=== PATIENT | male | born 1960 | race Caucasian/White ===

== ENCOUNTER 2019-07-05 10:30 | Inpatient (IN) | payer OTHER ==
[~2019-07-05] VITALS: Ht 182.9 cm; Wt 117.9 kg
[2019-07-05] MEDS ORDERED: NORVASC 2.5 MG2.5 M1 PO (13:26)
[2019-07-05] MEDS ORDERED: LIPITOR40 MG PO (13:27)
[2019-07-05] MEDS ORDERED: COLACE 100 MG100 MG PO (13:28)
[2019-07-05] MEDS ORDERED: IBUPROFEN 600600 M1 PO (13:29)
[2019-07-05] MEDS ORDERED: LEVO-T100 MCG PO (13:31)
[2019-07-05] MEDS ORDERED: SINGULAIR 10 MG10 M1 PO (13:33)
[2019-07-05] MEDS ORDERED: DALIRESP250 MCG PO (13:34)
[2019-07-05] MEDS ORDERED: VRAYLAR1.5 MG PO (13:35)
[2019-07-05] MEDS ORDERED: COMBIVENT INH (13:37)
[2019-07-05] MEDS ORDERED: CLEOCIN HCL300 MG PO (14:45)
[2019-07-05] MEDS ORDERED: CLONAZEPAM 0.50.5 M1 PO ×2 (14:48→14:49)
[2019-07-05] MEDS ORDERED: HYDROCHLOROTHIA25 M2 PO (14:50)
[2019-07-05] MEDS ORDERED: ALBUTEROL2.5 MG/0.5 INH (14:53)
[2019-07-05] MEDS ORDERED: NABUMETONE 500500 M1 PO (15:05)
[2019-07-05] MEDS ORDERED: PERCOCET 7.5-31 EAC1 PO (15:07)
[2019-07-05] MEDS ORDERED: CHANTIX1 MG PO (15:08)
[2019-07-05] MEDS ORDERED: BACLOFEN 10MG T10 MG PO (15:56)
--- NOTE | 2019-07-05 17:03 | NUR ---
1630 ADMITTED TO ROOM 505 PER W/C FROM [facility]. PATIENT IS ALERT AND ORIENTED X4. PATIENT ETIENNE'S, CHAINSTITCH TUNNEL ELASTIC OPERATOR ARE EQUAL. PATIENT HAS 4X4 DRESSING TO BACK OF HIS NECK. HIS INCISION IS COVERED BY STERI-STRIPS. PATIENT LUNGS ARE CLEAR AND DEMINISHED. ABD IS SOFT WITH BSX4. PATIENT HAD BM TODAY. PATIENT IS UP WITH ASSIST OF 1 STAFF WITH GAIT BELT AND WALKER. FALL AND SAFETY PROTOCOLS IN PLACE. DENIES PAIN AT THIS TIME. PT/OT/ST EVALS TO BE DONE IN THE A.M. REHAB N.P HERE TO SEE PATIENT. HOSPITALIST NOTIFIED OF PATIENTS ARRIVAL. WILL CONTINUE TO MONITER.
[2019-07-05 18:39] VITALS: BP 131/81
[2019-07-05 20:20] VITALS: BP 133/77
--- NOTE | 2019-07-05 22:10 | NUR ---
PT ASSESSMENT COMPLETED AND VSS. MEDS GIVEN ORDERED AND WELL TOLERATED. PRN PAIN MEDICATION HELPFUL. SLEEPING. NECK PRECAUTIONS FOLLOWED. FALL PRECAUTIONS IN PLACE. WILL CONTINUE TO MONITOR FREQUENTLY.
[2019-07-06 05:42] LABS: HEMATOCRIT 44.7 % (42.0-52.0); HEMOGLOBIN 14.6 gm/dL (14.0-18.0); MCH 30.6 pg (26.0-34.0); MCHC 32.6 g/dL (28.0-37.0); MCV 93.8 fL (80.0-100.0); RBC 4.76 mil/uL (4.50-6.00); RDW 13.4 % (10.5-14.5); WBC 10.1 thou/uL (4.0-11.0)
[2019-07-06 05:53] LABS: ALBUMIN 3.2 g/dL (3.4-5.0); TOTAL BILIRUBIN 0.6 mg/dL (<0.1-1.0); TOTAL PROTEIN 6.3 g/dL (6.4-8.2)
[2019-07-06 07:15] VITALS: BP 138/80
--- NOTE | 2019-07-06 12:29 | NUR ---
Nutrition: Assessed due to consult received related to need for supplements and wound present. Surgical wound present from recent cervical diskectomy with fusion. PMH: COPD, HTN, HLD. Reports good appetite eating nearly all of meals. Pt did voice a weight gain of over 60# due to need for steroids and of father. Admits to depression, inactivity and excessive sleeping. RD offered basic tips to promote weight loss. Requesting ensure enlive TID which RD explained would be excessive calories for pt. Will offer Ensure max once daily to provide additional protein without the excess calories. RD provided dietary handouts on weight loss per pt request. Current issues related to constipation/pain meds. On bowel regimen. Place pt as low nutrition risk.
--- NOTE | 2019-07-06 14:10 | NUR ---
Patient participated in community reintegration on 07/06/19 with PHYSICAL THERAPY. Refer to documentation by PHYSICAL THERAPY.
--- NOTE | 2019-07-06 16:24 | NUR ---
ASSUMED CARES AT 0700. PT AWAKE, ALERT AND ORIENTED*4. C/O NECK PAIN, PAIN MEDICATION ADMINISTERED NEEDED. VITALS REMAIN STABLE. NECK SITE BACK CLEANED AND DRESSING CHANGED. PT SUPPOSED TO WEAR NECK BRACE WHEN UP ACCORDING TO THE ORDER. SKIN REMAINS DRY AND INTACT. PT UP WITH 1 SBA, GB AND WALKER AND TOLERATED WELL. Q1H VISUAL CHECKS.CALL LIGHT WITHIN REACH. FALL PRECAUTIONS IN PLACE
[2019-07-06 19:15] VITALS: BP 125/54
--- NOTE | 2019-07-07 01:29 | NUR ---
PT ALERT AND ORIENTED X 4. AMB TO BR WITH WALKER AND ASSIST X 1. UNSTEADY GAIT. COLLAR ON WHEN UP. NECK DRESSING C/D/I. PT C/O PAIN IN HIS NECK. TRAMADOL GIVEN AT HS. PT SLEEPING UPON REASSESSMENT. PT UP TO URINATE FREQUENTLY. STATES IT IS BECAUSE HE TAKES A WATER PILL. PT STATES HE DOES NOT WANT TO TAKE THAT PILL ANYMORE. PT TAKES HCTZ ACCORDING TO MAR. PT DOES HAVE TRACE PEDAL EDEMA BILAT. WILL PASS ON TO DAY NURSE TO ADDRESS IN MORNING. BED ALARM ON FOR SAFETY. PT CHECKED ON HOURLY ROUNDS.
[2019-07-07 09:30] VITALS: BP 128/77
--- NOTE | 2019-07-07 12:54 | NUR ---
ASSUMED CARES AT 0700. PT AWAKE, ALERT AND ORIENTED*4. C/O NECK PAIN, TRAMADOL ADMINISTERED. VITALS REMAIN STABLE. SITE ON NECK BACK REMAINS DRY AND STERI STRIPS ARE INTACT. NECK BRACE REMAINS ON WHEN UP AND WITH ACTIVITY. PT CONTINUES TO HAVE BLE, EXTREMITIES ELEVATED. PT UP WITH 1 MIN ASSIST, GB AND WALKER AND TOLERATED WELL. Q1H VISUAL CHECKS. CALL LIGHT WITHIN REACH. FALL PRECAUTIONS IN PLACE
--- NOTE | 2019-07-07 15:24 | NUR ---
chart review. pt up in bed. per physical therapy pt had question about home health and dc. pt preferrs going by [facility] x 3, pleasant and able to make his needs know. " glad was able to come here, and nurses are great here"/tre. intro to dcp and team meeting. " live in residential apartment [facility]. have a cane. drive, and manage own medication. have grab bar in shower. dr is lesli richey [phone]. neighbors check on him if needed. 1 fall in past year outside on crack in sidewalk. i want to talk with someone about medicaid and disability. not with va yet. will be staying with my sister for 2-3 weeks after going home. she lives close by"/tre. will cont following as needed for dc needs.
[2019-07-07 19:53] VITALS: BP 125/84
[2019-07-08 01:13] LABS: URINE BILIRUBIN NEGATIVE (Negative); URINE BLOOD NEGATIVE (Negative); URINE CLARITY CLEAR; URINE COLOR YELLOW; URINE GLUCOSE-RANDOM* NEGATIVE (Negative); URINE KETONES NEGATIVE (Negative); URINE LEUKOCYTES NEGATIVE (Negative); URINE NITRITE NEGATIVE (Negative); URINE PROTEIN (DIPSTICK) NEGATIVE (Negative); URINE SPECIFIC GRAVITY 1.025 (1.005-1.035); URINE UROBILINOGEN 0.2 E.U./dl (0.2-1.0)
--- NOTE | 2019-07-08 01:30 | NUR ---
PT ALERT AND ORIENTED X 4. AMB TO BR WITH WALKER AND ASSIST X 1. DRESSING TO NECK C/D/I. PT C/O PAIN IN HIS NECK. TRAMADOL GIVEN AT HS AND PT SLEEPING UPON REASSESSMENT. UA SENT TO LAB WITH NEG RESULTS. BED ALARM ON FOR SAFETY. PT APPEARS TO BE SLEEPING ON HOURLY ROUNDS.
--- NOTE | 2019-07-08 11:57 | NUR ---
cm notified by that pt will be dc on 07/13/19 to [facility].
--- NOTE | 2019-07-08 14:07 | NUR ---
ASSUMED CARE AT 0700. PATIENT IS ALERT AND ORIENTED X4. PATIENT ETIENNE'S, TEXTILE EXAMINER ARE EQUAL. LUNGS ARE CLEAR. ABD IS SOFT WITH BSX4. PATIENT IS VOIDING PIETRO COLORED URINE. PATIENT IS UP TO THE BATHROOM WITH ASSIST OF 1 STAFF AND GAITBELT. PATIENT IS A LITTLE WOBBLY ON HIS FEET. UP TO THE DINING ROOM FOR MEALS. FALL AND SAFETY PROTOCOLS IN PLACE. DENIES ANY PAIN AT THIS TIME. CONTINUES TO PROGRESS TOWARDS D/C GOALS. WILL CONTINUE TO MONITER.
--- NOTE | 2019-07-08 14:09 | NUR ---
INCISION TO BACK OF HIS NECK COVERED WITH STERI STRIPS AND DRESSING THAT IS DRY AND INTACT. WILL CONTINUE TO MONITER.
[2019-07-08 18:55] VITALS: BP 113/65
--- NOTE | 2019-07-09 03:37 | NUR ---
assumed care at approx 1900 evening 07/08. pt alert and oriented x4 sitting up in recliner in apt at change of shift.pt up to bathroom with 1 assist. pt took hs meds with soda tolerating well. pt given pain meds prn and presently in bed sleeping soundly. bed alarm on and call light in reach. will continue to monitor.
--- NOTE | 2019-07-09 08:00 | NUR ---
ASSUMED CARE AT 0700. PATIENT IS ALERT AND ORIENTED X4. ARIAN HAS DRESSING TO HIS NECK WITH PAPER TAPE. LUNGS ARE CLEAR. ABD IS SOFT WITH BSX4. UP WITH P.T. WITH WALKER AND GAIT BELT TO THE BATHROOM TO VOID PIETRO COLORED URINE. OUT TO THE DINING ROOM TO MEALS. FALL AND SAFETY PROTOCOLS IN PLACE. C/O PAIN IN HIS NECK. MEDICATED WITH PRN PAIN MED. CONTINUES TO PROGRESS TOWARDS D/C GOALS. WILL CONTINUE TO MONITER.
--- NOTE | 2019-07-09 09:22 | NUR ---
CONSULT [id number] WAS COMPLETED AT APPROXIMATELY 1500 HOURS ON JULY 08, 2019 BY [facility] [employer] [facility].
[2019-07-09 10:28] VITALS: BP 114/62
[2019-07-09 19:15] VITALS: BP 111/56
--- NOTE | 2019-07-10 01:51 | NUR ---
assumed care at approx 1900 evening 07/09. pt sitting up on couch at change of shift resting. pt alert and oriented x4, somewhat forgetful yet pleasant and cooperative. pt reminded to use call light for assistance when needing to go to bathroom. pt assured he would call. pt took hs meds with water tolerating well. pt requested to sleep on couch as he stated it was more comfortable. pt appears to be sleeping soundly. call light in reach. will continue to monitor.
[2019-07-10 07:56] VITALS: BP 117/75
--- NOTE | 2019-07-10 13:08 | NUR ---
ASSUMED CARE AT 0700. VSS ON RA. B/P 117/75 HELD B/P MEDS PER PARAMETER. PATIENT IS ALERT AND ORIENTED X4. ABLE TO VOICE HIS NEEDS. STERI STRIPS CHANGED. ON NECK DRESSING, HEALING WELL, NEW STERI STRIPS APPLIED. LUNGS ARE CLEAR. ABD IS SOFT WITH BSX4. UP WITH P.T. WITH WALKER AND GAIT BELT TO THE BATHROOM TO VOID PIETRO COLORED URINE. NOTED DRAGGING RIGHT LEG WHEN WALKING. ENCOURAGED PT UP TO TO THE DINING ROOM TO MEALS. FALL AND SAFETY PROTOCOLS IN PLACE. C/O PAIN IN HIS NECK EARLIER. GAVE PRN TYLENOL WITH MORNING MEDS. PAIN IS DOWN TO 2/10, HAS ANXIETY 8/10, GAVE ANTIANXIETY GIVEN. PT REQUESTS TO BE ON NICOTINE PATCH PT TOLD DR. HERNÁNDEZ WHO CAME TO SEE PT THAT HE SMOKED [address] HERNÁNDEZ WILL ADD NICOTINE PATCH LATER. CONTINUES TO PROGRESS TOWARDS D/C GOALS. WILL CONTINUE TO MONITOR.
[2019-07-10 18:52] VITALS: BP 119/75
--- NOTE | 2019-07-10 23:30 | NUR ---
PT ASSESSMENT DONE AND VSS. MEDS GIVEN AND WELL TOLERATED. FALL PRECAUTIONS IN PLACE. SLEEPING WELL. HOURLY ROUNDING. CALL LIGHT IN REACH. WILL CONTINUE TO MONITOR.
[2019-07-11 06:35] LABS: ABSOLUTE NEUTROPHILS 6.2 thou/uL (1.4-8.2); BASOPHILS 1.1 % (0.0-2.0); EOSINOPHILS 4.8 % (0.0-3.0); HEMATOCRIT 45.5 % (42.0-52.0); HEMOGLOBIN 14.7 gm/dL (14.0-18.0); LYMPHOCYTES 19.1 % (24.0-44.0); MCH 30.2 pg (26.0-34.0); MCHC 32.2 g/dL (28.0-37.0); MCV 93.7 fL (80.0-100.0); MONOCYTES 7.6 % (1.0-8.0); PLATELET COUNT 324 thou/uL (150-400); POLYS 67.4 % (36.0-66.0); RBC 4.86 mil/uL (4.50-6.00); RDW 13.4 % (10.5-14.5); WBC 9.2 thou/uL (4.0-11.0)
[2019-07-11 07:09] LABS: MAGNESIUM 2.2 mg/dL (1.8-2.4); POTASSIUM 5.2 mmol/L (3.5-5.1)
[2019-07-11 07:14] LABS: CALCIUM 9.7 mg/dL (8.5-10.1)
[2019-07-11 08:23] VITALS: BP 121/83
--- NOTE | 2019-07-11 09:50 | NUR ---
ASSUMED CARE AT 0700. REPORTS DIDN'T SLEPT WELL LAST NIGHT. K5.2 KAYEXALATE ORDER BUT PT REFUSED. NOTIFIED MASOUD PT REFUSED TAKING KAYEXALATE. NOTED LEG 2+ PT HASN'T BE ON HTCZ D/T LOW B/P NOTIFIED MASOUD SHE CHANGED PARAMETER, THAT ABLE THIS FASTENER SEWING MACHINE OPERATOR TO GIVE HIM HTCZ THIS AM. PT ALSO REQUESTS TO BE ON MELATONIN TO HELP HIM SLEEP. MASOUD AWARES AND SAID SHE WILL LOOK INTO IT. PATIENT IS ALERT AND ORIENTED X4. ABLE TO VOICE HIS NEEDS. STERI STRIPS CHANGED. ON NECK DRESSING, HEALING WELL, NEW STERI STRIPS APPLIED. COLLAR IN PLACE. LUNGS ARE CLEAR. ABD IS SOFT WITH BSX4. UP WITH P.T. WITH WALKER AND GAIT BELT TO THE BATHROOM TO VOID PIETRO COLORED URINE. NOTED DRAGGING RIGHT LEG WHEN WALKING. ENCOURAGED PT UP TO TO THE DINING ROOM TO MEALS. FALL AND SAFETY PROTOCOLS IN PLACE. C/O PAIN IN HIS NECK RATE PAIN 6/10 GAVE PRN TYLENOL WITH MORNING MEDS. PAIN IS DOWN TO 2/10. START ON NICOTINE TODAY. CONTINUES TO PROGRESS TOWARDS D/C GOALS. WILL CONTINUE TO MONITOR.
[2019-07-11 19:43] VITALS: BP 116/75
--- NOTE | 2019-07-12 01:41 | NUR ---
PT ALERT AND ORIENTED X 4. AMB TO BR WITH WALKER AND ASSIST X 1. IMPULSIVE AT TIMES. PT INSISTS ON SLEEPING ON COUCH RATHER THAN IN BED. NECK INCISION C/D/I WITH STERI-STRIPS. PT WEARS NECK COLLAR WHEN UP. PT C/O NECK PAIN. TRAMADOL GIVEN AT START OF SHIFT. PT CHECKED ON HOURLY ROUNDS.
[2019-07-12 07:31] VITALS: BP 125/69
--- NOTE | 2019-07-12 10:00 | NUR ---
cm notified by [facility] that pt had some changes and getting MRI, will not dc to [facility] until thursday07/15/19, will cont following as needed for dc needs.
--- NOTE | 2019-07-12 16:07 | H ---
[facility] [place] [address] HISTORY AND PHYSICAL Name: CAMMY VELASQUEZ Room #: 501-A [facility] IN .R.#: [id number] Admission: 07/05/19 Attend Phys: Everton Jhaveri MD Discharge: Date of : 62 Report #: [id number] THIS REPORT FOR: //name// CC: Everton Jhaveri FAM unknown Luciano Fiore DATE OF SERVICE: 07/05/2019 HISTORY AND PHYSICAL AND POST-ADMISSION PHYSICIAN EVALUATION HISTORY OF PRESENT ILLNESS: The patient is a 58-year-old white male who was noted to have severe spinal stenosis of his cervical spine with cervical cord changes on imaging and some kyphosis. 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 He was admitted to [facility] and on 06/23/2019 underwent posterior cervical laminectomy with cervical fusion from C3 through C7 with instrumentation. Postoperatively, he has been managed while at [facility]. He is noted to have COPD. He has continued functional mobility and ADL deficits. He has been admitted now for acute in-hospital inpatient rehabilitation. PAST MEDICAL HISTORY: Includes COPD, heavy tobacco abuse. He is on Chantix history of hypertension, hyperlipidemia, peripheral neuropathy, and obstructive sleep apnea. MEDICATIONS: Please see the full medication listing. ALLERGIES: PENICILLIN. THERE IS ALSO A NOTE FOR IV DYE. SOCIAL HISTORY: The patient lives alone in an apartment. No stairs. His plan is to go to his sister's house, [place]. She works with her , is retired, and will be able to be there with him. He premorbidly utilized a quad cane. REVIEW OF SYSTEMS: No current complaints of chest pain, shortness of breath or abdominal discomfort. He notes some shaking that he gets after his breathing treatments, but he feels breathing treatments to help. PHYSICAL EXAMINATION: GENERAL: He is a pleasant 58-year-old white male in no obvious distress. VITAL SIGNS: Temperature 36.9, pulse 84, respirations 16, and blood pressure 138/80. NEUROLOGIC: He is alert, pleasant. Dentition fair with some missing teeth noted. His facies are symmetric. He follows commands without difficulty. CHEST: Some decreased breath sounds throughout. CARDIOVASCULAR: Regular rate and rhythm. [facility] [address] [place] [address] HISTORY AND PHYSICAL Name: CAMMY VELASQUEZ Room #: 501-A [facility] IN ..#: [id number] Admission: 07/05/19 Attend Phys: Everton Jhaveri MD Discharge: Date of : 62 Report #: [id number] ABDOMEN: Bowel sounds positive, nontender. GENITOURINARY AND RECTAL: Deferred. EXTREMITIES: He has functional range of motion of the upper extremities. Strength is probably a grade 4-/5. Negative Golden's. Lower extremities, no focal calf swelling, functional range of motion strength is a grade 4-/5. He does have rather stiff extensor tendencies of both lower extremities with gait when up walking with a walker. There was no clonus at the ankles. He does have decreased distal sensation consistent with his premorbid peripheral neuropathy. ASSESSMENT: A 58-year-old white male with the following problem list: 1. Cervical spinal stenosis with myelopathy. 2. Cervical spinal cord changes on imaging with spastic myelopathy noted. 3. Status post posterior cervical diskectomy with fusion C3 through C7 on 06/23/2019, at [facility] by Dr. Fiore. 4. Chronic obstructive pulmonary disease. 5. History of heavy tobacco abuse. 6. Hypertension. 7. Hyperlipidemia. 8. Premorbid peripheral neuropathy. 9. Obstructive sleep apnea. 10. Functional mobility and activities of daily living deficits. PLAN: The patient is admitted for acute in-hospital inpatient rehabilitation. From a postadmission physician evaluation perspective, there are no relevant changes since the preadmission screening. Please see the above review of prior and current medical and functional conditions and comorbidities. Please see the patient's previous and current functional status. As far as risk of complications, the patient has multiple medical comorbidities as noted above. Initial plan of care involves the interdisciplinary acute inpatient rehabilitation program. Measurable functional goals would be for the patient to become modified independent with transfers, mobility and ADLs, so that he can hopefully return and go to his sister's house. Prognosis is reasonably good with estimated length of stay probably at least 5-10 days and likely longer if warranted. Potential barriers would include his multiple medical comorbidities and decreased functional status. The patient meets diagnostic criteria for an acute in-hospital inpatient rehabilitation stay. He meets medical necessity criteria. We will have the environmental consultant physicians continue to follow. He does have the tolerance for therapies and has appropriate discharge goals back to the home setting. <ELECTRONICALLY SIGNED> By: Everton Jhaveri MD 07/12/19 1607 [id number] Everton Jhaveri MD /nt
--- NOTE | 2019-07-12 19:48 | NUR ---
A/O, clam and pleasant; afebrile; MRI done today, patient cried, worring about the result of MRI. Patient asked for higher dose of Nicotine patch, Dr. Jhaveri is aware.
[2019-07-12 20:15] VITALS: BP 116/74
--- NOTE | 2019-07-13 02:02 | NUR ---
PT ALERT AND ORIENTED X 4. AMB TO BR WITH WALKER AND ASSIST X 1. WEAK AND DRAGS RIGHT FOOT. NECK INCISION C/D/I WITH STERI-STRIPS. PT C/O NECK PAIN. TRAMADOL GIVEN AT HS AND PT SLEEPING UPON REASSESSMENT. ONE EPISODE OF URINARY INCONT TONIGHT. PT TRIED TO SLEEP IN BED BUT IS NOW ON COUCH IN ROOM. PT CHECKED ON HOURLY ROUNDS.
[2019-07-13 04:23] LABS: CALCIUM 9.4 mg/dL (8.5-10.1); CREATININE 1.2 mg/dL (0.7-1.3); POTASSIUM 4.7 mmol/L (3.5-5.1)
[2019-07-13 08:45] VITALS: BP 105/71
--- NOTE | 2019-07-13 10:31 | NUR ---
ASSUMED CARE AT 0700. PATIENT IS ALERT AND ORIENTED X4. ETIENNE'S, MEASUREMENT SPECIALIST ARE EQUAL. LUNGS ARE CLEAR. ABD IS SOFT WITH BSX4. PATIENT IS UP WITH ASSIST OF 1 STAFF AND GAIT BELT AND WALKER. UP TO THE DINING ROOM FOR MEALS. CONTINUES ON PO ABT WITHOUT ADVERSE AFFECTS. FALL AND SAFETY PROTOCOLS IN PLACE. DENIES ANY PAIN AT THIS TIME. CONTINUES TO PROGRESS TOWARDS D/C GOALS. GAIT IS STILL SLIGHTLY WOBBLY. WILL CONTINUE TO MONITER. REIVEWED WITH PATIENT : SHOES ON, CALL FOR HELP TO BATHROOM AND USE GAIT BELT.
--- NOTE | 2019-07-13 13:13 | NUR ---
Nutrition followup: Pt continues on rehab unit with cervical stenosis, kyphosis, myelopathy, S/P recent cervical diskectomy with fusion. No new weight since admit. Prior report of significant weight gain due to use of steroids. Weight loss tips/handouts have been provided. PO intake is good, 80-100% of meals and ensure max once daily. Prior loose stools are improving. On Vitamin D, B12 supplementation. Planned D/C 07/15. Low nutrition risk.
--- NOTE | 2019-07-13 14:15 | NUR ---
pt asked again how to set up va benifits, re-education that he would need to call [facility] and have them assit [phone]. talked about hh nurse for visit " [facility] is ok, not had hh in past"/tre
--- NOTE | 2019-07-13 14:33 | NUR ---
DISCHARGE PLANNING. ANTICIPATED DISCHARGE PLANNED FOR 07/15 PER UNIT CM. HOME HEALTH RECOMMENDED AT DISCHARGE. PATIENT REFERRAL FAXED TO [facility] PER REQUEST. PATIENT NEEDING NURSING SERVICES ONLY. PATIENT DISCHARGING TO [facility] [address] [place] [address]. CALL PLACED TO BUBBA [facility]SON INTAKE LIAISON TO NOTIFY OF PATIENT REFERRAL AND HH NEEDS. KATIE TO CHECK ON STAFFING AVAILABILITY FOR [facility] AND NOTIFY. FOLLOWING.
--- NOTE | 2019-07-13 15:33 | NUR ---
Patient participated in THERAPEUTIC GROUP ACTIVITY on 07/13/19 with SPEECH THERAPY. Refer to documentation by SPEECH THERAPIST.
--- NOTE | 2019-07-13 16:59 | NUR ---
Patient participated in therapeutic group on 07/13/[address] Refer to documentation by ST.
[2019-07-13 19:57] VITALS: BP 114/77
--- NOTE | 2019-07-14 03:20 | NUR ---
ASSUMED CARE AT APPROX 1900 EVENING 07/13. PT LYING ON COUCH SLEEPING AT CHANGE OF SHIFT. PT AWOKE FOR HS MEDS APPROX 2130 AND AWAKE UNTIL APPROX 0200. PT UP TO BATHROOM WITH WALKER AND 1 ASSIST DRAGGING RIGHT FOOT AT TIMES. PT APPROPRIATE AND COOPERATIVE. PT NOW BACK TO SLEEP ON COUCH. CALL LIGHT IN REACH. WILL CONTINUE TO MONITOR.
--- NOTE | 2019-07-14 07:55 | NUR ---
ASSUMED CARE AT 0700. PATIENT IS ALERT AND ORIENTED X4. PATIENT ETIENNE'S, CLOTH NEUTRALIZER ARE EQUAL. LUNGS ARE CLEAR. NECK STERI STRIPS DRY AND INTACT. ABD IS SOFT WITH BSX4. GAIT IS UNSTEADY. UP TO THE BATHROOM WITH ASSIST OF 1 STAFF AND GAIT BELT AND WALKER. OUT TO THE DINING ROOM FOR MEALS. FALL AND SAFETY PROTOCOLS IN PLACE. PATIENT HAS INTERMITTANT PAIN IN HIS NECK. PATIENT WAS MEDICATED WITH PRN PAIN MED BY NIGHT NURSE. CONTINUES TO PROGRESS TOWARDS D/C GOALS. WILL CONTINUE TO MONITER.
[2019-07-14 10:35] VITALS: BP 115/72
[2019-07-14 14:26] VITALS: BP 115/72
--- NOTE | 2019-07-14 14:31 | NUR ---
provided phone number to [facility] [employer] for pt to call to check on disability and va benefits. keyes # [phone], [place] [phone]. [facility] for dc home to sister house tomorrow. sister will be here around 4pm to pick him up.
[2019-07-14 19:17] VITALS: BP 129/76
--- NOTE | 2019-07-15 03:30 | NUR ---
CALLS FOR ASSIST UP TO BATHROOM. AWARE OF NEED TO WEAR SHOES AND USE WALKER BECAUSE OF HIS RIGHT FOOT DRAG. WEARS NECK COLLAR AND SLEEPS ON COUGH FOR COMFORT, CANNOT FIND POSITION OF COMFORT IN BED. APPRECIATES BACLOFEN. ANTICIPATING GOING HOME THIS AFTERNOON.
[2019-07-15 09:30] VITALS: BP 126/69
[2019-07-15] MEDS ORDERED: BACLOFEN 10MG T10 MG PO (10:18)
[2019-07-15] MEDS ORDERED: FLOMAX0.4 MG PO (10:18)
[2019-07-15] MEDS ORDERED: NICOTINE TRANSD14 M1 TRANSDERM (10:18)
[2019-07-15] MEDS ORDERED: ULTRAM 50MG TAB50 MG PO (10:18)
[2019-07-15] MEDS ORDERED: PROBIOTIC1 EAC1 PO (10:18)
[2019-07-15] MEDS ORDERED: VITAMIN B-12500 MCG PO (10:18)
[2019-07-15] MEDS ORDERED: VITAMIN D325 MCG PO (10:18)
--- NOTE | 2019-07-15 13:55 | PLAN ---
[facility] [place] [place] [address] REHAB UNIT PLAN OF CARE Name: CAMMY VELASQUEZ Room #: 501-A [facility] IN .R.#: [id number] Admission: 07/05/19 Attend Phys: Everton Jhaveri MD Discharge: Date of : 62 Report #: [id number] THIS REPORT FOR: //name// CC: Everton Jhaveri FAM unknown Luciano Fiore DATE OF SERVICE: 07/08/2019 PROGRESS NOTE AND OVERALL PLAN OF CARE HISTORY OF PRESENT ILLNESS: The patient is seen back today in followup. He is in good spirits. Last recorded temperature 97.9, pulse 82, respirations 16, and blood pressure 125/84. He does have a soft cervical collar in place. He is working in therapies with transfer standby assistance, gait 150 feet front-wheeled walker, contact guard assistance. In occupational therapy, lower body dressing has been min assist. Upper body is set up. He is being seen in speech therapy. He does have moderate cognitive deficits. ASSESSMENT: 1. Cervical spinal stenosis with myelopathy. 2. Spastic myelopathy. 3. Status post posterior cervical diskectomy with fusion C3 through C7 on 06/23/2019. 4. Chronic obstructive pulmonary disease. 5. History of tobacco abuse. 6. Hypertension. 7. Hyperlipidemia. 8. Premorbid peripheral neuropathy. 9. Obstructive sleep apnea. PLAN: The overall plan of care is based on the preadmission screen, post-admission physician evaluation and information garnered from therapy assessments. 1. Estimated length of stay is for planned discharge on next Thursday07/13/2019. Medical prognosis is good. 2. Anticipated interventions includes the interdisciplinary acute inpatient rehabilitation program. 3. Anticipated functional outcomes would be for the patient to become modified independent with transfers, mobility and ADLs. 4. Discharge destination is back to the home setting. He is going to be staying with his sister. 5. Expected therapy by discipline includes PT, OT and speech 1 hour per day each five days a week throughout the duration of the acute inpatient rehabilitation stay. [address] [address] REHAB UNIT PLAN OF CARE Name: CAMMY VELASQUEZ Room #: 501-A [facility] IN M.R.#: [id number] Admission: 07/05/19 Attend Phys: Everton Jhaveri MD Discharge: Date of : 62 Report #: [id number] ADDENDUM: The patient is progressing in therapies. Discussed with the team. Planning on discharge next Thursday as noted. <ELECTRONICALLY SIGNED> By: Everton Jhaveri MD 07/15/19 1355 [id number] Everton Jhaveri MD /nt
[2019-07-15 15:38] VITALS: BP 115/72
[2019-07-15 16:20] VITALS: BP 115/72
--- NOTE | 2019-07-15 17:35 | NUR ---
ASSUMED CARE OF PT AT 0715. PT IS A&OX4 AND VITAL SIGNS ARE STABLE. STERI STRIPS TO BACK C/D/I. BLE +1 EDEMA. ORDERS FOR DISCHARGE THIS SHIFT. PT PROVIDED WITH DISCHARGE INSTRUCTIONS, EDUCATION, SCRIPTS, AND MEDICAITON INFORMATION. PT DENIES PAIN. SISTER ARRIVED ON UNIT AT 1530. PT LEFT UNIT AT 1600 WITH SISTER VIA [employer]SPORT. H&P AND D/C SUMMARY FAXED TO PROVIDER PER ORDERS. DISCHARGE FORM SIGNED BY PT PRIOR TO DISMISSAL.
--- NOTE | 2019-07-17 19:58 | HC ---
[facility] [place] [address] CONSULTATION Name: CAMMY VELASQUEZ Room #: 501-A [facility] IN M.R.#: [id number] Admission: 07/05/19 Attend Phys: Everton Jhaveri MD Discharge: 07/15/19 Date of : 62 Report #: [id number] THIS REPORT FOR: //name// CC: Everton Jhaveri FAM caitlin Fiore DATE OF SERVICE: 07/10/2019 NEUROBEHAVIORAL STATUS EXAM ATTENDING PHYSICIAN: Everton Jhaveri MD PNEUMATIC TUBE FITTER: Leno Morris, PhD CLINICAL PRESENTATION: The patient is a 58-year-old male admitted to the [facility] Unit for comprehensive inpatient rehabilitation to improve functional mobility, activities of daily living and self-care and mental status secondary to deficits from severe spinal stenosis with cervical cord changes and kyphosis. He described his injury as the result of a slip and fall outside while taking out his trash. The patient is reported to have had a severe spastic myelopathy and was initially admitted to [facility] on 06/23/2019. He underwent a posterior cervical laminectomy with cervical fusion from C3 through C7 with instrumentation. He also has a diagnosis of COPD. Functional mobility and ADL deficits have now led to readmission for inpatient rehabilitation. His diagnostic assessment on admission to the rehab unit is cervical spinal stenosis with myelopathy, cervical spinal cord changes on imaging with spastic myelopathy, status post posterior cervical diskectomy with fusion C3-C7 on 06/23/2019, COPD, history of heavy tobacco abuse, hypertension, hyperlipidemia, premorbid peripheral neuropathy, obstructive sleep apnea and functional mobility and activities of daily living deficits. A complete description of his medical condition and history along with medications can be found in his medical record. Neuropsychological consultation was requested to provide assistance in the assessment of cognitive and emotional status and to provide recommendations and services. Prior to this most recent admission, he reports having been on disability. The patient described having gone on disability after an incident in which he fell off a truck and sustained a head trauma about 15-20 years ago. 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 He has one child. There is no reported history of alcohol or drug abuse, but has had previous treatment for depression. He was independent with instrumental activities of daily living and driving prior to this recent medical event. [facility] [address] [place] [address] CONSULTATION Name: CAMMY VELASQUEZ Room #: 501-A [facility] IN .R.#: [id number] Admission: 07/05/19 Attend Phys: Everton Jhavrei MD Discharge: 07/15/19 Date of : 62 Report #: [id number] TECHNIQUES UTILIZED: Clinical interview, review of medical records, staff consultation and behavioral observation, Mini Mental Status Exam 2 standard version, clock drawing and brief verbal fluency assessment (letter and category). EXAMINATION FINDINGS: The patient was alert and cooperative with the assessment. He did not report auditory or visual hallucinations. There is no evidence of aphasia. His thoughts are logical and goal oriented. There is no evidence of thought disorder. He describes difficulty with sleep and subjective anxiety, but does not report problems with appetite, memory, word finding or depression. He reports a brief period of amnesia suggesting a loss of conscious from his fall. His performance on the MMSE-2 brief version is in the mild range of impairment with a raw score of 12/16, that is a T score of 35. He was 3/3 for initial registration, 3/5 for orientation to time, 5/[address] and 1/3 for immediate recall of 3 items after a brief time delay and distraction. His performance on the MMSE-2 standard version was in the borderline range with a raw score of 24/30 and a T score 35, which is at the 7th percentile. He was 3/5 for serial sevens, 2/2 for naming, 1/1 for repetition, 3/3 for auditory comprehension. He could read and follow a single command, write a sentence and copy a simple geometric design. Deficits in clock drawing are noted with visual spatial construction. Single letter fluency was extremely low, at less than 1% with a raw score of 6 and a T score of 19. Estimated category fluency from single category was extremely low with a raw score of 6 and percentile rank of less than 1. While the patient is alert and oriented, he is showing deficits in immediate recall, sustained concentration, visual spatial construction and executive functioning. He does report increased anxiety. DIAGNOSTIC IMPRESSION: Neurocognitive disorder, unspecified - extent to be determined, likely in the moderate range. Unspecified anxiety disorder. RECOMMENDATIONS: The patient will likely benefit from speech therapy to assist with strategies for immediate recall, concentration and higher level executive functioning. The patient's driving should be discontinued and so that a more thorough evaluation of cognitive status can be obtained. Assistance in the management of medication, finances and nutrition are recommended. A followup neuropsychological evaluation post-discharge can also help clarify cognitive [facility] [address] [place] [address] CONSULTATION Name: CAMMY VELASQUEZ Room #: 501-A [facility] IN M.R.#: [id number] Admission: 07/05/19 Attend Phys: Everton Jhaveri MD Discharge: 07/15/19 Date of : 62 Report #: [id number] deficits. Thank you very much for allowing me to provide the consultation on this patient. <ELECTRONICALLY SIGNED> By: Leno Morris, PhD 07/17/19 [id number] Leno Morris, PhD /nt
== END 2019-07-15 16:21 | disposition home health service (06) | DRG 552 ==
LOC: ENTRNSPT 07-15 15:56
PROVIDERS: Nurse Practitioner; Nurse Practitioner Family; ADMIT Physical Medicine & Rehabilitation
DX: M48.02 Spinal stenosis, cervical region (principal); G99.2 Myelopathy in diseases classified elsewhere; E87.0 Hyperosmolality and hypernatremia; E46 Unspecified protein-calorie malnutrition; J44.9 Chronic obstructive pulmonary disease, unspecified; Z68.35 Body mass index [BMI] 35.0-35.9, adult; I10 Essential (primary) hypertension; E78.5 Hyperlipidemia, unspecified; G47.33 Obstructive sleep apnea (adult) (pediatric); G62.9 Polyneuropathy, unspecified; Z60.2 Problems related to living alone; E03.9 Hypothyroidism, unspecified; G89.29 Other chronic pain; M54.2 Cervicalgia; M54.9 Dorsalgia, unspecified; F41.9 Anxiety disorder, unspecified; M40.202 Unspecified kyphosis, cervical region; R41.9 Unspecified symptoms and signs involving cognitive functions and awareness; R29.6 Repeated falls; E87.5 Hyperkalemia; F32.9 Major depressive disorder, single episode, unspecified; F17.210 Nicotine dependence, cigarettes, uncomplicated; Z88.0 Allergy status to penicillin; Z91.041 Radiographic dye allergy status; Z98.1 Arthrodesis status; Z80.9 Family history of malignant neoplasm, unspecified; Z91.81 History of falling; Z80.8 Family history of malignant neoplasm of other organs or systems
CPT/HCPCS: 10112